=== PATIENT | male | born 1945 | race Caucasian/White ===

== ENCOUNTER 2021-05-28 15:33 | Emergency (ER) | payer OTHER, SELFPAY ==
[2021-05-28 15:50] VITALS: BP 101/68; PULSE 70; RESP 18; TEMP 36.4; O2SAT 93
[2021-05-28] MEDS: Lidocaine/Epinephri/Tetracaine Topical Gel 3 ML ×2 (16:20→17:03)
--- NOTE | 2021-05-28 16:53 | ED.GENADUL_ITS ---
Discharge Plan Disposition Patient Disposition: HOME Condition: Improving Discharge Details Clinical Impression: Skin tear Primary Care Provider: Juanita Méndez ED Provider: Mike Meraz Home Meds and New Rx's Prescriptions: Continued amiodarone 200 mg Tablet 200 mg PO DAILY 0RF sodium bicarbonate 325 mg Tablet 325 mg PO BID [id number] metoprolol succinate 100 mg Tablet Extended Release 24 Hr 100 mg PO DAILY 0RF sertraline 100 mg Tablet 100 mg PO DAILY 0RF clonazepam 1 mg Tablet 1 mg PO QHS [id number] Rx Instructions: administer 30 minutes before bedtime aspirin 81 mg Tablet,Delayed Release (Dr/Ec) 81 mg PO DAILY 0RF levothyroxine 125 mcg Tablet 125 mcg PO DAILY 0RF lanthanum [Fosrenol] 500 mg Tablet,Chewable 500 mg PO TID 0RF Rx Instructions: administer with food; chew thoroughly before swallowing lanthanum 500 mg Tablet,Chewable 500 mg PO TID [id number] Rx Instructions: administer with food; chew thoroughly before swallowing Discharge Instructions Instructions: Skin Tear (ED) Additional Instructions: At this time the bleeding is controlled with a nonstick antibiotic and LET dressing. Unfortunately, this is only a temporary solution and you will need to have continuing dressing changes and wound care. It is imperative that you continue to change this dressing at least daily and be sure to use a nonstick dressing, antibiotic ointment, and avoid any adhesive material directly to your skin. Please watch for new or worsening symptoms and return to the ER for any concerns. Lastly, please contact your primary care provider on Sunday to discuss your ongoing skin tear as you may need outpatient wound care referral if symptoms persist. Medical Decision Making 75-year-old gentleman presents for chronic skin tear bleeding. He reports at baseline he is rather thin skin, has dialysis to that arm and with the constant dressings changes with adhesive to his skin he gets chronic skin breakdown. Today he had successful dialysis but afterwards they noticed his skin tears were oozing and they were unable to get proper dressings, sent to the ER for further evaluation. He denies fever or localized redness. He takes a baby aspirin but no other anticoagulation. His tetanus status is up-to-date. Clinically he appears well, nontoxic. He has 2 skin tears on the posterior upper left arm. Dialysis site appears unremarkable. Plan is to apply nonstick dressing with LET, with a loose coban wrap. Patient was observed for over 20 minutes and hemostasis was obtained. We discussed proper wound care. Patient and family have no additional questions or concerns and are comfortable with discharge. We discussed the importance of not using dry gauze with adhesive stuck directly to the skin. This is how he presented and as soon as I removed the initial dressing I pulled the clot from the skin tear. Unfortunately this will continue to happen without proper care. We discussed the importance of contacting his primary care provider on Sunday to potentially set up wound care if he feels as though he cannot care for this on his own. This documentation was generated using [employer] system, please disregard any oddities of phrase or misspellings. HPI General Mode of arrival: wheelchair . Date/Time Provider Initiated Documentation: 05/28/21 15:59 . Limitations to Documentation: no limitations . Information obtained by: patient and family . History of Present Illness 75 year old M presents to the emergency department with the chief complaint of L arm skin tear, described as mild, with intensity rated at 2. Quality is described as aching, and is localized to the left and upper extremity. Patient reports no radiation. Patient started experiencing this week(s) (2, at least) and it has been constant. improves with No relieving factors improve symptom(s), Other factors that worsen symptoms (removing dressings) . Patient notes no other symptoms.. Patient did receive the following treatments prior to arrival, other (Had dialysis today, sent here as they did not have the proper dressings) Related Data Home Medications Medication Instructions Recorded Confirmed amiodarone 200 mg tablet 200 mg PO DAILY 05/28/21 05/28/21 aspirin 81 mg tablet,delayed 81 mg PO DAILY 05/28/21 05/28/21 release clonazepam 1 mg tablet 1 mg PO QHS PRN 05/28/21 05/28/21 lanthanum 500 mg chewable tablet 500 mg PO TID PRN 05/28/21 05/28/21 lanthanum 500 mg chewable tablet 500 mg PO TID 05/28/21 05/28/21 (Fosrenol) levothyroxine 125 mcg tablet 125 mcg PO DAILY 05/28/21 05/28/21 metoprolol succinate 100 mg 100 mg PO DAILY 05/28/21 05/28/21 tablet,extended release 24 hr sertraline 100 mg tablet 100 mg PO DAILY 05/28/21 05/28/21 sodium bicarbonate 325 mg tablet 325 mg PO BID PRN 05/28/21 05/28/21 Allergies Allergy/AdvReac Type Severity Reaction Status Date / Time nifedipine AdvReac Severe Nausea Unverified 05/28/21 15:57 General Stated Complaint: Laceration NIC: 4 Review of Systems Constitutional Constitutional: Denies fever(s) Integumentary/Breasts Skin/Breast: Denies erythema Hematologic/Lymphatic Hematologic/Lymphatic: Reports easy bleeding and Reports easy bruising PFSH All Active Problems (Updated 05/28/21 @ 17:04 by SONJA Hernandez) Skin tear (Acute) Social History Smoking/Tobacco Use Status: Former Tobacco Use Smoking risk assessment performed?: Yes Drug use: Never Do you feel safe at home: Yes Do you feel safe in your relationship?: Yes Exam Const General: cooperative, healthy appearing, comfortable and no acute distress Orientation: alert and awake HENNC Head: normal to inspection, normocephalic and atraumatic Eyes General: appearance normal, both eyes and all related structures Conjunctivae: conjunctivae normal Neck Neck: normal visual inspection, trachea midline and supple Resp Effort & Inspection: normal respiratory effort and able to speak in complete sentences Cardio Rate: regular rate Rhythm: regular rhythm Skin Rashes: no rashes Neuro General: patient alert, patient awake, moves all extremities and no focal motor deficits Cognition: normal cognition Speech: speech normal Sensory Exam: no sensory deficits noted Extrem General: full ROM and capillary refill normal Shoulder/upper arm images: 1. oozing skin tear 2. oozing skin tear Psych Appearance: grossly normal Mental Status: mental status grossly normal Course Vital Signs Vital signs: Vital Signs Temperature 36.4 C 05/28/21 15:50 Pulse 70 05/28/21 15:50 Respiratory Rate 18 05/28/21 15:50 Blood Pressure 101/68 05/28/21 15:50 Pulse Oximetry 93 05/28/21 15:50 Temperature 36.4 C 05/28/21 15:50 Temperature Source Oral 05/28/21 15:50 Pulse 70 05/28/21 15:50 Respiratory Rate 18 05/28/21 15:50 Respiratory Effort Non-Labored 05/28/21 15:54 Blood Pressure 101/68 05/28/21 15:50 Blood Pressure Position Sitting 05/28/21 15:50 Pulse Oximetry 93 05/28/21 15:50 Oxygen Delivery Method Room Air 05/28/21 15:50 Oxygen Flow Rate 0 05/28/21 15:50 Pain Level 5 05/28/21 15:50 PAWSS Have you Been Recently Intoxicated or Drunk Within the Last 30 days?: No Have you Ever Experienced Previous Episodes of Alcohol Withdrawal?: No Have you ever Experienced Withdrawal Seizures?: No Have you ever Experienced Delirium Tremens(DT)s?: No Have you ever undergone Alcohol Rehabilitation Treatment (i.e, inpt ot outpatient treatment programs)?: No Have you ever Experienced Blackouts?: No Have you ever Combined Alcohol with other Downers within the last 90 days?: No Have you ever Combined Alcohol with any other Substance of Abuse during the last 90 days?: No Positive Blood Alcohol level on Presentation? [PCS.BAL]: No Evidence of Increased Autonomic Activity (i.e. HR>120, tremor, sweating, agitation, nausea)?: No Result: 0
[2021-05-28 17:10] VITALS: BP 132/74; PULSE 72; RESP 16; TEMP 36.6; O2SAT 98
== END 2021-05-28 17:12 | disposition home or self-care (01) ==
PROVIDERS: Emergency Provider Physician Assistant; PCP Nurse Practitioner Primary Care
DX: S51.012A Laceration without foreign body of left elbow, initial encounter (principal); X58.XXXA Exposure to other specified factors, initial encounter
CPT/HCPCS: 99282